=== PATIENT | male | born 1970 | race Caucasian/White ===

== ENCOUNTER 2019-04-01 21:56 | Emergency (ER) | payer MEDICARE, MEDICAID ==
[~2019-04-01] VITALS: Ht 167.6 cm; Wt 75.3 kg
--- NOTE | 2019-04-01 22:58 | NUR ---
PT BIB [facility] WITH A C/O SI WITH A PLAN TO CUT HIS WRISTS. PT WAS TAKEN TO ER #[id number] AND WAS PLACED ON THE MONITOR. PT'S BELONINGS WERE REMOVED AND PLACED AT THE NURSE'S STATION.
--- NOTE | 2019-04-01 23:00 | NUR ---
PT WAS WANDED BY SECURITY.
--- NOTE | 2019-04-01 23:15 | NUR ---
PT AMBULATED TO THE BATHROOM WITH A STEADY GAIT. PT WAS GIVEN GRIPPER SOCKS.
--- NOTE | 2019-04-01 23:30 | NUR ---
PT REC'D A TUNA SANDWICH AND JUICE. PT TOLERATED PO WELL.
[2019-04-01 23:39] LABS: BASOPHILS # (AUTO) 0.1 /CMM (0.0-0.2); EOSINOPHILS % (AUTO) 0.8 % (0.0-6.0); HEMATOCRIT 43 % (39-51); LYMPHOCYTES # (AUTO) 2.5 /CMM (0.8-4.8); LYMPHOCYTES % (AUTO) 23.3 % (20.0-44.0); MEAN CORPUSCULAR HGB CONC 35 g/dl (31.0-36.0); MEAN CORPUSCULAR VOLUME 95 fL (80-96); MONOCYTES # (AUTO) 0.8 /CMM (0.1-1.30); MONOCYTES % (AUTO) 7.1 % (2.0-12.0); NEUTROPHILS # (AUTO) 7.2 /CMM (1.8-8.9); NEUTROPHILS % (AUTO) 67.8 % (43.0-81.0); PLATELET COUNT (AUTO) 365 /CMM (150-450); RED BLOOD CELL COUNT(AUTO) 4.57 MIL/uL (4.5-6.0); WHITE BLOOD COUNT (AUTO) 10.7 K/uL (4.3-11.0)
[2019-04-01 23:48] LABS: CALCIUM, SERUM 9.6 mg/dL (8.5-10.1); CARBON DIOXIDE 25 mmol/L (21-32); CHLORIDE 96 mmol/L (98-107); CREATININE 0.7 mg/dL (0.6-1.3); GLUCOSE 252 mg/dL (74-106); POTASSIUM 4.1 mmol/L (3.5-5.1); SODIUM SERUM 134 mmol/L (136-145); UREA NITROGEN, BLOOD 7 mg/dL (7-18)
[2019-04-01 23:56] LABS: ACETAMINOPHEN < 2 ug/ml (10-30); ALANINE AMINOTRANSFERASE 23 U/L (12-78); ALBUMIN 3.9 g/dL (3.4-5.0); ALCOHOL, BLOOD 15 mg/dL (0-0); ALKALINE PHOSPHATASE 131 U/L (46-116); ASPARTATE AMINOTRANSFERASE 14 U/L (15-37); BILIRUBIN,DIRECT 0.1 mg/dL (0.0-0.2); BILIRUBIN,TOTAL 0.5 mg/dL (0.2-1.0); SALICYLATE 2.8 mg/dL (2.8-20.0)
--- NOTE | 2019-04-02 00:15 | NUR ---
PT AMBULATED TO THE BATHROOM WITH A STEADY GAIT.
--- NOTE | 2019-04-02 00:30 | NUR ---
PT REMOVED THE BP CUFF AND PULSE OX. PT DOES NOT WANT TO KEEP THEM ON.
[2019-04-02 00:51] LABS: APPEARANCE,URINE Clear (CLEAR); BILIRUBIN,URINE Negative (NEGATIVE); BLOOD, URINE Negative Ery/uL (NEGATIVE); COLOR,URINE Yellow (YELLOW); KETONES,URINE 15 (NEGATIVE); LEUKOCYTE ESTERASE ,URINE Negative (NEGATIVE); NITRITE, URINE Negative (NEGATIVE); PH,URINE 5.5 (5.0-8.0); PROTEIN,URINE Negative (NEGATIVE); UGLUCOSE 500 MG/DL mg/dL (NEGATIVE); UROBILINOGEN,URINE 0.2 EU/dL (0.2)
[2019-04-02] MEDS ORDERED: LEVETIRACETAM (500MG) 1,000 MG in IV NS 0.9% 100 ML IV STA (01:14)
[2019-04-02] MEDS: INSULIN REGULAR, HUMAN 100 UNIT/ML 10 ML VIAL SQ ONE ×2 (01:30→02:24)
[2019-04-02] MEDS ORDERED: INSULIN REGULAR, HUMAN 100 UNIT/ML 10 ML VIAL ONE (01:45)
[2019-04-02] MEDS ORDERED: LEVETIRACETAM (500MG) 500 MG/5 ML VIAL IV ONE (01:45)
[2019-04-02 02:05] LABS: BACTERIA,URINE Rare /HPF (None Seen); RBC,URINE 0-2 /HPF (0-2); SQUAMOUS EPITHELIAL CELL,UR Rare /HPF (None Seen); WBC,URINE 0-2 /HPF (0-3)
[2019-04-02 03:24] VITALS: BP 131/75
--- NOTE | 2019-04-02 03:25 | NUR ---
Note ene in ED - 04/02/19 at 0340 by HANNAH ZION PLEITEZ/GREGORY WENT TO CHECK THE PT'S BLOOD GLUCOSE AND PT WAS USING THE BLANKETS AND PUTTING THEM AROUND HIS NECK AN ATTEMPT TO KILL HIMSELF. PT WAS TALKED TO BY ZION PLEITEZ AND PT STOPPED TRING THIS.
--- NOTE | 2019-04-02 03:25 | NUR ---
ZION PLEITEZ/GREGORY WENT TO CHECK THE PT'S BLOOD GLUCOSE AND PT HAD THE BLANKETS AROUND HIS BACK OF HIS NECK AND HAD HIS HAND ON EITHER SIDE OF THE BLANKET WHILE TWISING THEM. PT APPEARED TO BE SLIGHLY ANXIOUS AND CALMED DOWN WHEN ZION PLEITEZ TALKED TO HIME. PT DID NOT ADMIT TO A SUICIDE ATTEMPT.
--- NOTE | 2019-04-02 03:55 | NUR ---
PT REMOVED THE BP CUFF AND PULSE OX. PT APPEARS ANXIOUS. PT AMBULATED TO THE NURSE'S STATION REQUESTING MEDICATION TO CALM HIM DOWN.
[2019-04-02] MEDS ORDERED: LORAZEPAM 1 MG TABLET ONE (04:01)
--- NOTE | 2019-04-02 04:04 | NUR ---
NOAM ALEGRIA LCSW, IS AT THE BEDSIDE SPEAKING TO THE PT.
[2019-04-02] MEDS ORDERED: LORAZEPAM 1 MG TABLET PO ONE (04:30)
--- NOTE | 2019-04-02 05:14 | NUR ---
PT ACCEPTED TO [facility] BY DR ESPOSITO, ROOM 312-A. # FOR REPORT [phone].
--- NOTE | 2019-04-02 05:23 | NUR ---
CALLED [facility] FOR THE [facility] FOR TRANSPORT. ETA 45 MINUTES AT 0615. TRIP #[id number].
--- NOTE | 2019-04-02 05:53 | NUR ---
REPORT GIVEN TO RAFAEL DONOVAN FOR CONTINUATION OF CARE.
--- NOTE | 2019-04-02 06:26 | NUR ---
[facility] AT BEDSIDE FOR TRANSPORT.
== END 2019-04-02 06:57 ==
LOC: ER 22:00
DX: F28 Other psychotic disorder not due to a substance or known physiological condition (principal); E11.65 Type 2 diabetes mellitus with hyperglycemia; F19.10 Other psychoactive substance abuse, uncomplicated; G40.909 Epilepsy, unspecified, not intractable, without status epilepticus; F17.200 Nicotine dependence, unspecified, uncomplicated; F25.9 Schizoaffective disorder, unspecified; F32.9 Major depressive disorder, single episode, unspecified
CPT/HCPCS: 36415; 80048; 80076; 80177; 80305; 80307; 80329; 81001; 82962 ×3; 85025; 96365; 96372; 99285; G0480; J1815; J1953 ×2; J7030 ×2; 81000-TC